=== PATIENT | female | born 1990 | race Hispanic/Latino ===

== ENCOUNTER 2018-10-31 16:13 | Emergency (ER) | payer SELFPAY ==
[~2018-10-31] VITALS: Ht 170.2 cm; Wt 60.0 kg
[2018-10-31 17:40] VITALS: BP 111/70
== END 2018-10-31 17:40 | disposition home or self-care (01) | DRG 951 ==
LOC: ED 16:13
DX: Z20.2 Contact with and (suspected) exposure to infections with a predominantly sexual mode of transmission (principal); F17.210 Nicotine dependence, cigarettes, uncomplicated